=== PATIENT | male | born 1995 ===

== ENCOUNTER 2019-11-18 12:54 | Emergency (ER) | payer OTHER ==
[2019-11-18] MEDS ORDERED: Cephalexin CAP* 500 MG PO ONE (14:07)
--- NOTE | 2019-11-18 14:13 | UC ---
Hand/Wrist HPI - HPI Summary HPI Summary: 24-year-old male comes in with a chief complaint of a laceration to the left hand. This prior to arrival patient was preparing his meal any broken glass cut in the webbing between the left fourth and fifth fingers. He does not believe there is any broken glass in the wound. It did bleed some but not excessively. Denies any weakness or numbness. He believes is up-to-date on his tetanus. - History Of Current Complaint Chief Complaint: UCLaceration Stated Complaint: FINGER LACERATION Time Seen by Provider: 11/18/19 13:52 Pain Intensity: 2 - Allergies/Home Medications Allergies/Adverse Reactions: Allergies Allergy/AdvReac Type Severity Reaction Status Date / Time No Known Allergies Allergy Verified 11/18/19 13:26 PMH/Surg Hx/FS Hx/Imm Hx Previously Healthy: Yes - Surgical History Surgical History: None - Family History Known Family History: Positive: Non-Contributory - Social History Alcohol Use: Occasionally Substance Use Type: None Smoking Status (MU): Never Smoked Tobacco - Immunization History Most Recent Tetanus Shot: UTD Review of Systems All Other Systems Reviewed And Are Negative: Yes Constitutional: Positive: Negative Skin: Positive: Other - SEE HPI Eyes: Positive: Negative ENT: Positive: Negative Respiratory: Positive: Negative Cardiovascular: Positive: Negative Gastrointestinal: Positive: Negative Motor: Positive: Negative Neurovascular: Positive: Negative Musculoskeletal: Positive: Negative Neurological: Positive: Negative Psychological: Positive: Negative Is Patient Immunocompromised?: No Physical Exam Triage Information Reviewed: Yes Appearance: Well-Appearing, No Pain Distress, Well-Nourished Vital Signs: Initial Vital Signs Temp 98.1 F 11/18/19 13:23 Pulse 79 11/18/19 13:23 Resp 16 11/18/19 13:23 BP 123/73 11/18/19 13:23 Pulse Ox 100 11/18/19 13:23 Vital Signs Reviewed: Yes Eye Exam: Normal Eyes: Positive: Conjunctiva Clear Neck: Positive: Supple Respiratory: Positive: No respiratory distress Musculoskeletal: Positive: Strength Intact, ROM Intact, Other: - Left hand fingers have full motion full strength normal sensation normal capillary refill. Neurological: Positive: Alert, Muscle Tone Normal Psychological: Positive: Age Appropriate Behavior Skin: Positive: Other - Between the webbing the left fourth and fifth fingers there is a 6 mm subcutaneous linear laceration. Hand/Wrist Course/Dx - Course Course Of Treatment: Laceration was irrigated by nursing. Edges were well approximated. I discussed glue versus sutures with the patient. I glued the laceration. I am treating prophylactically with Keflex although the risk of infection is low. At this time it does not appear that is a foreign body in the hand. Plan is to follow-up with the orthopedic hand specialist if not completely improving or worse. Patient she get reevaluated sooner if worse or any questions or concerns. - Differential Dx/Diagnosis Provider Diagnosis: Laceration of left hand Discharge ED - Sign-Out/Discharge Documenting (check all that apply): Patient Departure All imaging exams completed and their final reports reviewed: No Studies - Discharge Plan Condition: Stable Disposition: HOME Prescriptions: Cephalexin CAP* [Keflex CAP*] 500 mg PO TID #15 cap Patient Education Materials: Laceration (ED), Skin Adhesive Care (ED) Referrals: [facility] [place] [Provider Group] Thanh aZvala MD [Medical Doctor] - Additional Instructions: FOLLOW UP WITH THE ORTHOPEDIC HAND SPECIALIST, DR ZAVALA, IF NOT COMPLETELY IMPROVED. GET REEVALUATED SOONER IF NOT IMPROVED OR WORSE OR ANY QUESTIONS OR CONCERNS. - Billing Disposition and Condition Condition: STABLE Disposition: Home
== END 2019-11-18 14:25 | disposition home or self-care (01) ==
LOC: UCEAST 12:54
DX: S61.215A Laceration without foreign body of left ring finger without damage to nail, initial encounter (principal); W25.XXXA Contact with sharp glass, initial encounter; Y93.G1 Activity, food preparation and clean up; Y92.9 Unspecified place or not applicable
CPT/HCPCS: 12001; 99202; A9270-GY; G0463